=== PATIENT | male | born 1945 | race Caucasian/White ===

== ENCOUNTER 2023-10-29 09:18 | Outpatient (AMB) | payer MEDICARE, SELFPAY ==
--- NOTE | 2023-10-29 09:34 | A.OFFVIS_ITS ---
Intake VS Expanded 10/29/23 09:36 11/04/23 13:03 Height 5 ft 11 in 5 ft 11 in Weight 170 lb 13.732 oz 171 lb BMI 23.8 23.8 Intake Visit Reasons: Lipid disorder/CONFIRMED HPI Nutrition Presentation Details Pt presents for MNT for hyperlipidemia. The patient was referred by Saritha Marquez from [facility] Patient reports typical weight is between 160-170lbs Typical meal consist of B: cereal (bran /cheerios, fruit almonds/ milk (whole) L: sand (peanut butter/jelly fruit sweetened) , turkey and cheese/mustard sandwich, apple dinner: rice , chicken, [place] sprouts, snack: pastries, ice cream muffin with jam flavored pretzels, grapes etoh: denies , occ smoking: denies physical activity: active 45 min to 1 hr daily (looking forward to biking) Fish: 1x/wk Vegetable: Reports consuming greater than 3 servings per day Fruits: Reports consuming at least 2 per day Fried foods 0-1 a week Pastries: 1-2 a day PTJ-Dtiuwaj-Uh.Jeor Equation Height 5 ft 11 in Weight 171 lb Resting Metabolic Rate 1528.15 Calculated Activity Level Moderate Activity Calories Needed to Maintain Weight 2368.63 Diagnosis Nutrition problem #1 altered nutrition labs As related to (etiology) #1 lack of nutrit education As evidenced by (sign/symptom) #1 food recall (lack of knowledge re types of fats/fiber) Learning/Education Readiness to learn good Stages of change action Educational materials provided Yes (fiber types of foods, fat types of foods) Most Recent Diabetes Results: No Data to Display Assessment & Plan Assessment & Plan (1) Hyperlipidemia: Code(s): E78.5 - Hyperlipidemia, unspecified Plan: Wt: 78 Kg ( 10/2023 ) Est kcal needs as per MSJ: 2400 (40% carb, 30% protein/fat) Est fluid needs as per 25-30 ml/d: 2340 Est prot per day as per 1 g/kg bw: 78 Recommend fiber intake : 8-10 g per day and gradually increase to 25-28 g per day for women and 35-38 g for men or as tolerated Recommend sodium intake per day : less than 2000 mg Educated patient on: ( R = reviewed V = verbalizes understanding N/R = needs review N/A = not applicable * Food sources of carbohydrate, adequate serving sizes and its role in various health conditions: NR * Differences between complex carbohydrates a simple carbohydrates, role of fiber in diet, types of fiber: R * Lean protein sources of foods: R * Differences between types of fats and role in diet (mono on saturated fat fatty acids, saturated fatty acids, trans fats): R V * Vitamins and minerals, omega 3 fatty acids: R * Healthy plate method concept: R V * Physical activity: Benefits a precaution: R V * Patient Instructions: Include omega 3 sources of fats in your diet (fish 2x/wk, seeds, nuts) include oats at least twice a week, add 1 tsp and gradually increase to 3 tbsp per day of milled flaxseed keep hydrated , having water with meals Coding Level of Care Code Nutr Indiv Intake (16975) Diagnoses Hyperlipidemia E78.5 Time Spent (min) 30
[2023-10-29 09:36] VITALS: BMI 23.8
[2023-11-04 13:03] VITALS: BMI 23.8
== END 2023-10-29 10:19 | disposition home or self-care (01) ==
PROVIDERS: PCP Internal Medicine; Visit Provider Dietitian, Registered
DX: E78.5 Hyperlipidemia, unspecified (principal)

== ENCOUNTER → 2023-10-29 09:18 | Outpatient (BNVA) | payer MEDICARE, SELFPAY | PROVIDERS: PCP Internal Medicine; Visit Provider Dietitian, Registered | DX: E78.5 Hyperlipidemia, unspecified (principal) | CPT/HCPCS: 97802 ==

== ENCOUNTER 2023-12-30 09:46 | Outpatient (AMB) | payer MEDICARE, SELFPAY ==
--- NOTE | 2023-12-30 09:54 | A.OFFVIS_ITS ---
Intake VS Expanded 12/30/23 09:55 Height 5 ft 11 in Weight 167 lb 15.876 oz BMI 23.4 Intake Visit Reasons: Elevated Cholesterol/LVM HPI Nutrition Presentation Details Pt presents for MNT f/u for hyperlipidemia Pt reports working on dietary modifications, choosing higher fiber foods and reducing on foods high in saturated fats . Reports doing well , no questions or concerns expressed at this time Most Recent Diabetes Results: No Data to Display Assessment & Plan Assessment & Plan (1) Hyperlipidemia: Code(s): E78.5 - Hyperlipidemia, unspecified Plan: Wt: 78 Kg ( 10/2023 ), 76 kg(12/2023) Est kcal needs as per MSJ: 2400 (40% carb, 30% protein/fat) Est fluid needs as per 25-30 ml/d: 2340 Est prot per day as per 1 g/kg bw: 78 Recommend fiber intake : 8-10 g per day and gradually increase to 25-28 g per day for women and 35-38 g for men or as tolerated Recommend sodium intake per day : less than 2000 mg Educated patient on: ( R = reviewed V = verbalizes understanding N/R = needs review N/A = not applicable * Food sources of carbohydrate, adequate serving sizes and its role in various health conditions: R * Differences between complex carbohydrates a simple carbohydrates, role of fiber in diet, types of fiber: R , V * Lean protein sources of foods: R , V * Differences between types of fats and role in diet (mono on saturated fat fatty acids, saturated fatty acids, trans fats): R V * Vitamins and minerals, omega 3 fatty acids: R, V * Healthy plate method concept: R V * Physical activity: Benefits a precaution: R V * Patient Instructions: Continue working on following healthy plate , choosing mufa/pufat sources of foods and reducing saturated fats Include omega 3 sources of foods (seeds, fish , algae) Keep hydrated by having water with meals/snacks Coding Level of Care Code Nutr Indiv Subseq (49236) Diagnoses Hyperlipidemia E78.5 Time Spent (min) 30
[2023-12-30 09:55] VITALS: BMI 23.4
== END 2023-12-30 11:04 | disposition home or self-care (01) ==
PROVIDERS: PCP Internal Medicine; Visit Provider Dietitian, Registered
DX: E78.5 Hyperlipidemia, unspecified (principal)

== ENCOUNTER → 2023-12-30 09:46 | Outpatient (BNVA) | payer MEDICARE, SELFPAY | PROVIDERS: PCP Internal Medicine; Visit Provider Dietitian, Registered | DX: E78.5 Hyperlipidemia, unspecified (principal) | CPT/HCPCS: 97803 ==